=== PATIENT | female | born 1975 | race Caucasian/White ===

== ENCOUNTER 2017-03-11 21:53 | Emergency (ER) | payer MEDICARE ==
[~2017-03-11] VITALS: Ht 160 cm; Wt 90.7 kg
[~2017-03-11 21:53] MED LIST: ABILIFY5 MG ORAL; ADDERALL 30 MG30 MG ORAL; ATIVAN1 MG ORAL; CIPROFLOXACIN500 M2 ORAL; DILANTIN100 MG PO; IBUPROFEN800 MG PO; KLONOPIN1 MG ORAL; LEVAQUIN500 MG ORAL; NORCO 10-325 T1 EACH PO; NORCO 5-325 TA1 EAC1 ORAL; NORCO 5-325 TA1 EACH PO; PENICILLIN V P500 MG PO; PHENAZOPYRIDIN100 MG ORAL; PHENAZOPYRIDIN200 MG ORAL; PROTONIX40 MG PO; TOPAMAX25 MG PO; TOPAMAX50 MG PO; TRAZODONE HCL150 MG ORAL; TYLENOL500 MG PO; VICODIN 5-5001 EACH PO; XANAX2 MG PO
[2017-03-11 22:57] LABS: BASOPHILS % (AUTO) 1.2 % (0.0-2.0); EOSINOPHILS % (AUTO) 2.8 % (0.0-3.0); LYMPHOCYTES % (AUTO) 27.8 % (20.0-45.0); MEAN CORPUSCULAR HEMOGLOBIN 26.7 PG (27.0-31.0); MEAN CORPUSCULAR HGB CONC 33.4 G/DL (32.0-36.0); MEAN CORPUSCULAR VOLUME 80 FL (80-99); MEAN PLATELET VOLUME 7.7 FL (6.5-10.1); MONOCYTES % (AUTO) 9.6 % (1.0-10.0); NEUTROPHILS % (AUTO) 58.6 % (45.0-75.0); PLATELET COUNT 226 K/UL (150-450); RED BLOOD COUNT 4.85 M/UL (4.20-5.40); RED CELL DISTRIBUTION WIDTH 15.7 % (11.6-14.8); WHITE BLOOD COUNT 8.5 K/UL (4.8-10.8)
[2017-03-11] MEDS ORDERED: LORazepam Inj 2mg/ml 1ml IV ONE (23:15)
[2017-03-11 23:19] LABS: ALANINE AMINOTRANSFERASE 22 U/L (3-33); ALBUMIN/GLOBULIN RATIO 1.2 (1.0-2.7); ANION GAP 15 (5-15); ASPARTATE AMINO TRANSFERASE 28 U/L (5-40); CALCIUM 9.7 mg/dL (8.6-10.2); CARBON DIOXIDE 26 mEQ/L (20-30); CHLORIDE 96 mEQ/L (98-107); CREATININE 0.8 mg/dL (0.5-0.9); GLOMERULAR FILTRATION RATE > 60 mL/min (>60); HEMOLYSIS 126; POTASSIUM 4.5 mEQ/L (3.4-4.9); SODIUM 137 mEQ/L (135-145); TROPONIN I < 0.30 ng/mL (<=0.30)
[2017-03-11 23:29] LABS: CKMB < 1.5 ng/mL (< 3.8)
[2017-03-12 00:02] VITALS: BP 120/83
[2017-03-12 00:26] VITALS: BP 120/83
--- NOTE | 2017-03-12 00:28 | Emergency Room Report ---
History of Present Illness General Chief Complaint: General Complaint Source: Patient Present Illness HPI 41-year-old female presents to ED for evaluation. Patient states that she is here for multiple complaints. States that she is feeling short of breath feels dizzy, some chest burning sensation. Feels weak in the legs. States symptoms started this morning when she woke up. Gotten progressively worse. Patient denies smoking or drug use. She has history of anxiety and states that she is under a lot of stress right now. Normally takes Ativan. Denies feeling depressed. Denies any suicidal or homicidal radiation. No other aggravating relieving factors. Denies any other associated symptoms Allergies: Coded Allergies: CEFEPIME (Verified Allergy, Unknown, 12/22/15) CODEINE (Verified Allergy, Unknown, 12/22/15) DIPHENHYDRAMINE (Verified Allergy, Unknown, 12/22/15) HALOPERIDOL (Verified Allergy, Unknown, 12/22/15) PROMETHAZINE HCL (Verified Allergy, Unknown, 12/12/12) SULFA (SULFONAMIDE ANTIBIOTICS) (Verified Allergy, Unknown, 08/07/09) TRIMETHOBENZAMIDE (Verified Allergy, Unknown, 08/07/09) Uncoded Allergies: COMPAZINE (Adverse Reaction, Severe, Anaphylaxis, 12/12/12) REGLAN (Adverse Reaction, Severe, DYSTONIA, 12/12/12) Patient History Past Medical History: asthma, migraines, psych hx Past Surgical History: none Pertinent Family History: none Social History: Denies: alcohol use, drug use, smoking Last Menstrual Period: February Now: No Immunizations: UTD Reviewed Nursing Documentation: PMH: Agreed, PSxH: Agreed Nursing Documentation-PMH Hx Hypertension: No Hx Pacemaker: No Hx Asthma: Yes Hx COPD: No Hx Cancer: No Hx Gastrointestinal Problems: No Hx Dialysis: No Hx Neurological Problems: Yes - Migraine headache Hx Cerebrovascular Accident: Yes - 2010 Hx Seizures: Yes Review of Systems All Other Systems: negative except mentioned in HPI Physical Exam Vital Signs Date Time Temp Pulse Resp B/P Pulse Ox O2 Delivery O2 Flow Rate FiO2 03/11/17 22:01 98.2 129 18 143/79 100 Room Air Sp02 EP Interpretation: reviewed, normal General Appearance: no apparent distress, alert, GCS 15, non-toxic Head: normocephalic, atraumatic Eyes: bilateral eye PERRL, bilateral eye normal inspection ENT: hearing grossly normal, normal pharynx, no angioedema, normal voice Neck: full range of motion, supple/symm/no masses Respiratory: chest non-tender, lungs clear, normal breath sounds, speaking full sentences Cardiovascular #1: no edema, tachycardia Cardiovascular #2: 2+ carotid (R), 2+ carotid (L), 2+ radial (R), 2+ radial (L) , 2+ dorsalis pedis (R), 2+ dorsalis pedis (L) Gastrointestinal: normal bowel sounds, non tender, soft, non-distended, no guarding, no rebound Rectal: deferred Genitourinary: normal inspection, no CVA tenderness Musculoskeletal: back normal, gait/station normal, normal range of motion, non- tender Neurologic: alert, oriented x3, responsive, motor strength/tone normal, sensory intact, speech normal Psychiatric: judgement/insight normal, memory normal, anxious Reflexes: 3+ bicep (R), 3+ bicep (L), 3+ tricep (R), 3+ tricep (L), 3+ knee (R) , 3+ knee (L) Skin: normal color, no rash, warm/dry, well hydrated Lymphatic: no adenopathy Medical Decision Making Diagnostic Impression: Primary Impression: Anxiety ER Course Hospital Course Or-year-old female presents ED complaining of chest burning, chest tightness, dizziness, shortness of breath, weakness. History of anxiety Differential diagnoses include: CA/unstable angina, PE, dehydration, anxiety Clinical course Patient placed on stretcher. on fuse maker. After initial history and physical I ordered labs, EKG, chest x-ray, IVFs and ativan labs reviewed- no leukocytosis, hemoglobin/hematocrit stable, troponins negative , electrolytes okay, ddimer within normal limits EKG - sinus tachycardia, no acute changes CXR unremarkable Upon reassessment patient is observed feeling better. Clinical findings consistent with anxiety reaction. Patient and family agree. Patient states she always runs tachycardic heart rates ranging in the 120s. I. I feel this is a highly complex case requiring extensive working including EKG/Rhythm strip, Xray/CT/US, Blood/urine lab work, repeat exams while in ED, and administration of strong opiates/narcotics for pain control, admission to hospital or close patient follow up. Diagnosis - anxiety Stable and discharged to home. Followup with PMD. Return to ED if symptoms recur or worse Labs Test 03/11/17 22:40 White Blood Count 8.5 K/UL (4.8-10.8) Red Blood Count 4.85 M/UL (4.20-5.40) Hemoglobin 13.0 G/DL (12.0-16.0) Hematocrit 38.8 % (37.0-47.0) Mean Corpuscular Volume 80 FL (80-99) Mean Corpuscular Hemoglobin 26.7 PG (27.0-31.0) Mean Corpuscular Hemoglobin Concent 33.4 G/DL (32.0-36.0) Red Cell Distribution Width 15.7 % (11.6-14.8) Platelet Count 226 K/UL (150-450) Mean Platelet Volume 7.7 FL (6.5-10.1) Neutrophils (%) (Auto) 58.6 % (45.0-75.0) Lymphocytes (%) (Auto) 27.8 % (20.0-45.0) Monocytes (%) (Auto) 9.6 % (1.0-10.0) Eosinophils (%) (Auto) 2.8 % (0.0-3.0) Basophils (%) (Auto) 1.2 % (0.0-2.0) D-Dimer 242 ng/mL (<500) Sodium Level 137 mEQ/L (135-145) Potassium Level 4.5 mEQ/L (3.4-4.9) Chloride Level 96 mEQ/L (98-107) Carbon Dioxide Level 26 mEQ/L (20-30) Anion Gap 15 (5-15) Blood Urea Nitrogen 13 mg/dL (7-23) Creatinine 0.8 mg/dL (0.5-0.9) Estimat Glomerular Filtration Rate > 60 mL/min (>60) Glucose Level 107 mg/dL (74-106) Calcium Level 9.7 mg/dL (8.6-10.2) Total Bilirubin < 0.2 mg/dL (0.0-1.2) Aspartate Amino Transf (AST/SGOT) 28 U/L (5-40) Alanine Aminotransferase (ALT/SGPT) 22 U/L (3-33) Alkaline Phosphatase 82 U/L (35-104) Total Creatine Kinase 75 U/L (26-140) Creatine Kinase MB < 1.5 ng/mL (< 3.8) Creatine Kinase MB Relative Index 2.0 Troponin I < 0.30 ng/mL (<=0.30) Pro-B-Type Natriuretic Peptide 23 pg/mL (0-125) Total Protein 7.0 g/dL (6.6-8.7) Albumin 3.9 g/dL (3.5-5.2) Globulin 3.1 g/dL Albumin/Globulin Ratio 1.2 (1.0-2.7) EKG Diagnostic Results Rate: tachycardiac Rhythm: NSR ST Segments: no acute changes ASA given to the pt in ED: No Rhythm Strip Diag. Results EP Interpretation: yes Rhythm: NSR, no PVC's, no ectopy Chest X-Ray Diagnostic Results EP Interpretation: Yes Findings: no consolidation, no effusion, no pneumothorax, no acute cardiopulmonary disease Number of Views: 1 Last Vital Signs Date Time Temp Pulse Resp B/P Pulse Ox O2 Delivery O2 Flow Rate FiO2 03/12/17 00:02 98.2 116 22 120/83 97 Room Air Status: improved Disposition: HOME, SELF-CARE Condition: Stable Patient Instructions: Panic Attacks, [id number] RIAZ STINSNO M.D. March 12, 2017 00:28
--- NOTE | 2017-03-12 17:31 | Cardiology Report ---
APPROVED REPORT EKG Measurement Heart [id number] Sinus tachycardia Otherwise normal ECG
--- NOTE | 2017-03-13 10:53 | Diagnostic Imaging Report ---
Indication: Dyspnea Comparison: None A single view chest radiograph was obtained. Findings: Cardiomediastinal appearance is within normal limits for age. Pulmonary vascularity is appropriate. The diaphragmatic contour is smooth and costophrenic angles are sharp. No pleural effusions are identified. The bones are unremarkable. Impression: No acute findings
== END 2017-03-12 00:30 | disposition home or self-care (01) ==
LOC: EMR 22:21
DX: F41.9 Anxiety disorder, unspecified (principal); J45.909 Unspecified asthma, uncomplicated; Z86.73 Personal history of transient ischemic attack (TIA), and cerebral infarction without residual deficits; Z88.8 Allergy status to other drugs, medicaments and biological substances; Z88.6 Allergy status to analgesic agent; Z88.2 Allergy status to sulfonamides
CPT/HCPCS: 36415; 71010; 80053; 82550; 82553; 83880; 84484; 85025; 85379; 93005; 96360; 96374

== ENCOUNTER 2017-03-28 16:49 | Emergency (ER) | payer MEDICARE ==
[~2017-03-28] VITALS: Ht 160 cm; Wt 68.0 kg
[2017-03-28] MEDS ORDERED: LORazepam 1mg tab ORAL ONE (17:15)
[2017-03-28 17:57] LABS: BASOPHILS % (AUTO) 1.1 % (0.0-2.0); EOSINOPHILS % (AUTO) 1.7 % (0.0-3.0); LYMPHOCYTES % (AUTO) 14.4 % (20.0-45.0); MEAN CORPUSCULAR HEMOGLOBIN 26.4 PG (27.0-31.0); MEAN CORPUSCULAR HGB CONC 33.1 G/DL (32.0-36.0); MEAN CORPUSCULAR VOLUME 80 FL (80-99); MEAN PLATELET VOLUME 7.9 FL (6.5-10.1); MONOCYTES % (AUTO) 9.7 % (1.0-10.0); NEUTROPHILS % (AUTO) 73.2 % (45.0-75.0); PLATELET COUNT 266 K/UL (150-450); RED BLOOD COUNT 5.14 M/UL (4.20-5.40); RED CELL DISTRIBUTION WIDTH 15.7 % (11.6-14.8); WHITE BLOOD COUNT 10.4 K/UL (4.8-10.8)
[2017-03-28 18:19] LABS: ALANINE AMINOTRANSFERASE 32 U/L (3-33); ALBUMIN/GLOBULIN RATIO 1.3 (1.0-2.7); ANION GAP 18 (5-15); ASPARTATE AMINO TRANSFERASE 25 U/L (5-40); CALCIUM 9.5 mg/dL (8.6-10.2); CARBON DIOXIDE 24 mEQ/L (20-30); CHLORIDE 92 mEQ/L (98-107); CREATININE 0.8 mg/dL (0.5-0.9); GLOMERULAR FILTRATION RATE > 60 mL/min (>60); HEMOLYSIS 46; SODIUM 134 mEQ/L (135-145); TOTAL PROTEIN 7.3 g/dL (6.6-8.7)
[2017-03-28] MEDS ORDERED: TYLENOL EXTRA500 MG ORAL (19:26)
[2017-03-28] MEDS ORDERED: HYDROCHLOROTHIA25 MG ORAL (19:26)
[2017-03-28 19:29] VITALS: BP 126/79
--- NOTE | 2017-03-28 21:58 | Emergency Room Report ---
History of Present Illness General Chief Complaint: General Complaint Source: Patient, Medical Record Present Illness HPI The patient is a 41-year-old female presenting for bilateral lower leg swelling which occurred this morning for no known reason. The patient states that this has occurred in the past and was hospitalized with a diagnosis was not found. Pain is described as a 10 out of 10 dull ache to both legs and feet and is worse with touch. No radiating pain. The patient denies numbness or tingling. She denies calf pain or shortness of breath. She denies recent injury to the legs or taking OCPs. The patient states that she has been under extreme stress over the past few days due to her mother being in the ICU. She states that she does have a history of anxiety and takes 2 mg of Ativan every night. She denies any other symptoms including chest pain, fever, chills, nausea, vomiting, headache, dizziness Allergies: Coded Allergies: CEFEPIME (Verified Allergy, Unknown, 12/22/15) CODEINE (Verified Allergy, Unknown, 12/22/15) DIPHENHYDRAMINE (Verified Allergy, Unknown, 12/22/15) HALOPERIDOL (Verified Allergy, Unknown, 12/22/15) PROMETHAZINE HCL (Verified Allergy, Unknown, 12/12/12) SULFA (SULFONAMIDE ANTIBIOTICS) (Verified Allergy, Unknown, 08/07/09) TRIMETHOBENZAMIDE (Verified Allergy, Unknown, 08/07/09) Uncoded Allergies: COMPAZINE (Adverse Reaction, Severe, Anaphylaxis, 12/12/12) REGLAN (Adverse Reaction, Severe, DYSTONIA, 12/12/12) Patient History Past Medical History: see triage record Pertinent Family History: none Last Menstrual Period: 03/26/17 Now: No Reviewed Nursing Documentation: PMH: Agreed, PSxH: Agreed Nursing Documentation-PMH Past Medical History: No History, Except For Hx Hypertension: No Hx Pacemaker: No Hx Asthma: Yes Hx COPD: No Hx Cancer: No Hx Gastrointestinal Problems: No Hx Dialysis: No Hx Neurological Problems: Yes - Migraine headache Hx Cerebrovascular Accident: Yes - 2010 Hx Seizures: Yes Review of Systems All Other Systems: negative except mentioned in HPI Physical Exam Vital Signs Date Time Temp Pulse Resp B/P Pulse Ox O2 Delivery O2 Flow Rate FiO2 03/28/17 17:02 98.1 124 19 135/90 99 Room Air Sp02 EP Interpretation: reviewed, normal General Appearance: no apparent distress, alert, GCS 15, non-toxic Head: normocephalic, atraumatic Eyes: bilateral eye PERRL, bilateral eye normal inspection ENT: hearing grossly normal, normal pharynx, no angioedema, normal voice Respiratory: chest non-tender, lungs clear, normal breath sounds, no wheezing, speaking full sentences Cardiovascular #1: regular rate, rhythm, no edema Musculoskeletal: swelling - bilat anterior lower legs from proximal tibia to mid foot. 1+ pitting edema, tender - TTP over bilat anterior lower legs from proximal tibia to mid foot Neurologic: alert, oriented x3, responsive, motor strength/tone normal, sensory intact, normal gait, speech normal Psychiatric: memory normal, no suicidal/homicidal ideation, no delusions, anxious Skin: normal color, no rash, warm/dry, well hydrated Lymphatic: no adenopathy Medical Decision Making PA Attestation Dr. Denise is my supervising physician. Patient management was discussed with my supervising physician Diagnostic Impression: Primary Impression: Localized swelling of both lower legs ER Course The patient is a 41-year-old female presenting for bilateral lower leg swelling which occurred this morning Differential diagnoses considered but not limited to: CHF, muscle strain, DVT, vascular insufficiency, among others Physical exam: She is tachycardic. Otherwise vitals within normal limits. The patient does appear to be anxious. HEENT exam is unremarkable Lungs are clear to auscultation bilaterally RRR There is bilateral lower leg 1+ pitting edema from the mid tibia to the midfoot. No skin changes. There is tenderness to palpation over the anterior legs. No calf tenderness. DVT studies unremarkable Blood work unremarkable EKG shows sinus tachycardia Patient is given Ativan and Tylenol and is feeling better She has refused to give urine and is asking to leave. I have advised her that she needs to followup with her PMD as soon as possible. She will elevate her legs and use compression stockings. ER precautions are given and she'll be given a prescription for hydrochlorothiazide Laboratory Tests Test 03/28/17 17:40 White Blood Count 10.4 K/UL (4.8-10.8) Red Blood Count 5.14 M/UL (4.20-5.40) Hemoglobin 13.6 G/DL (12.0-16.0) Hematocrit 41.0 % (37.0-47.0) Mean Corpuscular Volume 80 FL (80-99) Mean Corpuscular Hemoglobin 26.4 PG (27.0-31.0) L Mean Corpuscular Hemoglobin Concent 33.1 G/DL (32.0-36.0) Red Cell Distribution Width 15.7 % (11.6-14.8) H Platelet Count 266 K/UL (150-450) Mean Platelet Volume 7.9 FL (6.5-10.1) Neutrophils (%) (Auto) 73.2 % (45.0-75.0) Lymphocytes (%) (Auto) 14.4 % (20.0-45.0) L Monocytes (%) (Auto) 9.7 % (1.0-10.0) Eosinophils (%) (Auto) 1.7 % (0.0-3.0) Basophils (%) (Auto) 1.1 % (0.0-2.0) Sodium Level 134 mEQ/L (135-145) L Potassium Level 4.0 mEQ/L (3.4-4.9) Chloride Level 92 mEQ/L (98-107) L Carbon Dioxide Level 24 mEQ/L (20-30) Anion Gap 18 (5-15) H Blood Urea Nitrogen 9 mg/dL (7-23) Creatinine 0.8 mg/dL (0.5-0.9) Estimate Glomerular Filtration Rate > 60 mL/min (>60) Glucose Level 105 mg/dL (74-106) Calcium Level 9.5 mg/dL (8.6-10.2) Total Bilirubin 0.5 mg/dL (0.0-1.2) Aspartate Amino Transferase (AST) 25 U/L (5-40) Alanine Aminotransferase (ALT) 32 U/L (3-33) Alkaline Phosphatase 93 U/L (35-104) Total Protein 7.3 g/dL (6.6-8.7) Albumin 4.2 g/dL (3.5-5.2) Globulin 3.1 g/dL Albumin/Globulin Ratio 1.3 (1.0-2.7) Lab Results Impression unremarkable EKG Diagnostic Results Rate: tachycardiac - 116 Rhythm: NSR ST Segments: no acute changes ASA given to the pt in ED: No PA Scribe Text EKG was reviewed and read with my supervising physician. No acute ST segment changes are seen. CT/MRI/US Diagnostic Results CT/MRI/US Diagnostic Results : Imaging Test Ordered: bilat venous duplex Impression unremarkable Last Vital Signs Date Time Temp Pulse Resp B/P Pulse Ox O2 Delivery O2 Flow Rate FiO2 03/28/17 19:29 100 14 126/79 98 Room Air 03/28/17 19:29 98.0 Status: improved Disposition: HOME, SELF-CARE Condition: Improved Scripts Acetaminophen* (TYLENOL EXTRA STRENGTH*) 500 Mg Tablet 500 MG ORAL Q8H Y for Prn Headache/Temp > 101, #30 TAB 0 Refills Prov: ERIC [email or web address] 03/28/17 Hydrochlorothiazide* (HYDROCHLOROTHIAZIDE*) 25 Mg Tablet 25 MG ORAL DAILY, #10 TAB Prov: ERIC CAMEJO. 03/28/17 Patient Instructions: Peripheral Edema Additional Instructions: I discussed my findings with the patient. All questions and concerns have been answered. Treatment and medication compliance have been addressed. I advised the patient that they need to follow up with PMD in 3-5 days. Return to ED if symptoms worsen, new symptoms arise, or if needed for any reason. Patient verbalized understanding of discharge instructions. ERIC CAMEJO March 28, 2017 21:58
--- NOTE | 2017-03-29 18:35 | Cardiology Report ---
APPROVED REPORT EKG Measurement Heart [id number] Sinus tachycardia Otherwise normal ECG
--- NOTE | 2017-03-31 11:38 | Diagnostic Imaging Report ---
APPROVED REPORT CPT Code: 91854 Present Symptoms Comments: Swelling BILATERAL: Imaging reveals a patent deep venous system bilaterally. There is no evidence of thrombus within the femoral, popliteal or tibial segments. The greater saphenous veins are also within normal limits. Doppler indicates normal spontaneous flow within these segments.
== END 2017-03-28 19:31 | disposition home or self-care (01) ==
LOC: EMR 17:26
DX: R22.43 Localized swelling, mass and lump, lower limb, bilateral (principal); R00.0 Tachycardia, unspecified; J45.909 Unspecified asthma, uncomplicated; F41.9 Anxiety disorder, unspecified; Z88.2 Allergy status to sulfonamides; Z88.6 Allergy status to analgesic agent; Z88.1 Allergy status to other antibiotic agents; Z88.8 Allergy status to other drugs, medicaments and biological substances; Z86.73 Personal history of transient ischemic attack (TIA), and cerebral infarction without residual deficits
CPT/HCPCS: 36415; 80053; 85025; 93005; 93970; 99284